=== PATIENT | male | born 1990 | race Caucasian/White ===

== ENCOUNTER 2017-08-27 13:33 | Emergency (ER) | payer OTHER ==
[~2017-08-27] VITALS: Ht 172.7 cm; Wt 104.3 kg
[2017-08-27] MEDS ORDERED: Bactrim Ds Tab1 EACH PO (15:05)
== END 2017-08-27 15:13 | disposition home or self-care (01) ==
LOC: ER 13:33
DX: L02.415 Cutaneous abscess of right lower limb (principal); F17.290 Nicotine dependence, other tobacco product, uncomplicated
CPT/HCPCS: 10060; 99283